=== PATIENT | female | born 1995 | race Caucasian/White ===

== ENCOUNTER 2020-03-07 09:52 | Emergency (ER) | payer MEDICAID, SELFPAY ==
[2020-03-07 09:52] VITALS: BP 137/87; PULSE 79; RESP 18; TEMP 37.1; O2SAT 98; BMI 34.4
--- NOTE | 2020-03-07 10:09 | W.ED.DENTAL ---
HPI - Dental/Oral General: Chief complaint: Dental/Oral Stated complaint: DENTAL PAIN Time Seen by Provider: 03/07/20 10:02 History of Present Illness: HPI Narrative: 25-year-old female patient presents the emergency department complaining of left-sided upper dental pain as well as facial swelling. Patient states the dental pain started a few days ago she woke up with swelling to the left side of her face. Patient denies any difficulty swallowing. Patient denies any shortness of breath. Patient denies any fever. Patient denies any pain in her mastoid area. Patient states she has known dental decay. Associated symptoms: Denies ear or mastoid pain, fever(s) or odynophagia Review of Systems General: Reports: 10 or more systems reviewed and unremarkable except in HPI and below Const: Denies: fever(s) or chills ENMT: Reports: dental pain and sinus pain (Swelling and pain noted to the left side of face); Denies: throat pain, uvular edema, enlarged tonsils, odynophagia, bleeding gums, dry mouth or ear or mastoid pain Neuro: Denies: headache(s) PFSH ED PFSH: Surgical History History of lymph node excision Status post cholecystectomy Status post ear surgery Status post tubal ligation Family History Father Hypertension Other Diabetes Social History Smoking and tobacco status: current every day smoker Alcohol intake: current Alcohol intake frequency: holidays/special occasions only Female Reproductive History: Date of last menstrual period: 06/08/19 Para: 3 Physical Exam Const: COMMON NORMALS: no acute distress, average body habitus, patient oriented x3, no limitations, healthy appearing, alert and well nourished HENMT: COMMON NORMALS: normocephalic, atraumatic, hearing grossly normal bilaterally, external ears normal, EAC's normal, TM's normal bilaterally, Normal external nose present, Normal nasal mucous membranes and turbinates present, moist oral mucous membranes, oropharynx normal, dentition normal and gingiva normal HEAD & SCALP: normocephalic and atraumatic FACE & SINUS: Facial tenderness on exam of face and sinuses on the left NOSE: Normal external nose present and Normal nasal mucous membranes and turbinates present EXTERNAL EAR: Yes external ears normal EXTERNAL AUDITORY CANAL: EAC's normal TYMPANIC MEMBRANE: TM's normal bilaterally MOUTH: Normal oral and palatal mucosa present; no trismus and no restricted motion TEETH & GINGIVA: Yes abnormal tooth and associated gingiva, Yes caries and Yes other (There is no obvious abscess there is no fluctuation induration or pointing noted) TEETH & GINGIVA IMAGES: 1. THROAT: no uvular edema Neck/C-Spine: COMMON NORMALS: no JVD Resp: COMMON NORMALS: normal respiratory effort, No retractions, No use of accessory muscles, clear to auscultation bilaterally and percussion normal AUSCULTATION: clear to auscultation bilaterally PERCUSSION: percussion normal Cardio: COMMON NORMALS: no JVD, regular rate and regular rhythm RATE: regular rate RHYTHM: regular rhythm Neuro: COMMON NORMALS: patient oriented x3 SENSORIUM/ORIENTATION: Yes alert Course Vital Signs: Vital signs: Vital Signs Temperature 98.7 F 03/07/20 09:52 Pulse Rate 79 03/07/20 09:52 Respiratory Rate 18 03/07/20 09:52 Blood Pressure 137/87 03/07/20 09:52 Pulse Oximetry 98 03/07/20 09:52 MDM - Dental/Oral MDM Narrative: Medical decision making narrative: Patient is well-appearing nontoxic and in no acute distress. Patient presents with left sided upper dental pain. With facial swelling and tenderness. Patient does not have any pain over the mastoid area patient has no concerning findings for Angel's angina. Patient is able to swallow without difficulty. Patient denies any trismus. There is no obvious abscess there is no fluctuation pointing noted. Patient does have tenderness to the gumline as well as dental caries noted. I will go ahead and start patient on clindamycin patient is currently taken amoxicillin I advised her to stop taking this and start clindamycin. Patient's physical exam findings are consistent with infected dental caries facial cellulitis. Patient is to follow-up with her dentist next week. I did discuss return precautions with patient as well as home care. Patient denies any chest pain or shortness of breath. Patient is afebrile. Patient has had a tubal ligation so I will go ahead and start her on an NSAID for pain control. Differential Diagnosis: Dental Differential Diagnosis: Likely gingival abscess, dental caries, dental abscess and aphthous ulcer Discharge Plan Discharge Patient Disposition: Home Clinical Impression: Dental caries, Cellulitis of face Condition: Stable Prescriptions: New clindamycin HCl 300 mg capsule 300 mg PO BID 7 Days Qty: 14 RF: 0 ibuprofen 800 mg tablet 800 mg PO TID Qty: 30 RF: 0 No Action No Known Home Medications RF: 0 Referrals: Kristie Gracia DO [Primary Care Provider] - Discharge Diet: Advance as tolerated Discharge Activity: Resume usual activity Patient Instructions: Cellulitis (ED), Toothache (ED) Activity Restrictions/Additional Instructions: Please stop your Amoxicillin and Start Clindamycin Please follow up with your dentist Please take Ibuprofen for pain control Please return with any worsening of condition Coding Level of Care Code ED Network Infrastructure Architect for Iqra Ralph
== END 2020-03-07 10:25 | disposition home or self-care (01) ==
PROVIDERS: Emergency Provider Registered Nurse; PCP Family Medicine
DX: K02.9 Dental caries, unspecified (principal); L03.211 Cellulitis of face; F17.210 Nicotine dependence, cigarettes, uncomplicated
CPT/HCPCS: 12345; 99281

== ENCOUNTER → 2020-05-15 11:15 | Outpatient (BNVA) | payer MEDICAID, SELFPAY | PROVIDERS: PCP Family Medicine; Visit Provider Nurse Practitioner Family | DX: Z20.828 Contact with and (suspected) exposure to other viral communicable diseases (principal); J06.9 Acute upper respiratory infection, unspecified | CPT/HCPCS: 87635 ==

== ENCOUNTER 2020-05-17 12:22 | Emergency (ER) | payer SELFPAY ==
[2020-05-17 12:27] VITALS: BP 125/85; PULSE 87; RESP 18; TEMP 36.8; O2SAT 97; BMI 37.3
--- NOTE | 2020-05-17 12:49 | W.ED.DENTAL ---
HPI - Dental/Oral General: Chief complaint: Dental/Oral Stated complaint: DENTAL PAIN,COUGH Time Seen by Provider: 05/17/20 12:34 Source: patient Mode of arrival: ambulatory Limitations: no limitations History of Present Illness: MD Complaint: tooth pain and tooth injury (same tooth 3 years ago - avulsion) Location: Tooth # (16) Onset (ago): day(s) (2-3) Duration: constant Severity: mild Severity scale (1-10): 3 Relieving factors: NSAIDs Exacerbating factors: chewing, cold and heat Context: history of dental caries and other (dental pain same tooth) Associated symptoms: Reports no associated symptoms; Denies fever(s) Treatment prior to arrival: oral analgesic Review of Systems General: Reports: 10 or more systems reviewed and unremarkable except in HPI and below Const: Denies: fever(s), chills or diaphoresis Eyes: Denies: blurry vision or eye redness ENMT: Reports: dental pain; Denies: throat pain, uvular edema, hoarseness, disequilibrium, nasal discharge, nasal congestion or post nasal drip Card: Denies: chest pain, palpitations, irregular heart rhythm, dyspnea on exertion or orthopnea Resp: Reports: non-productive cough; Denies: dyspnea, productive cough, wheezing or chest congestion (x) GI: Denies: abdominal pain, nausea or vomiting : Denies: difficulty voiding or dysuria Musc: Denies: back pain Skin/Breast: Denies: rash or pruritus Neuro: Denies: headache(s), weakness in extremities or behavioral changes Psych: Denies: anxiety or depression Manjit/Lymph: Denies: easy bruising PFSH ED PFSH: Surgical History History of lymph node excision Status post cholecystectomy Status post ear surgery Status post tubal ligation Family History Father Hypertension Other Diabetes Social History Smoking and tobacco status: current every day smoker Alcohol intake: current Alcohol intake frequency: holidays/special occasions only Female Reproductive History: Date of last menstrual period: 06/08/19 Para: 3 Physical Exam Const: COMMON NORMALS: no acute distress, patient oriented x3, healthy appearing and alert GENERAL APPEARANCE: cooperative, comfortable and well hydrated HENMT: COMMON NORMALS: normocephalic, atraumatic, EAC's normal, Normal external nose present and moist oral mucous membranes HEAD & SCALP: normal to inspection, normocephalic and atraumatic FACE & SINUS: normal facial exam, sinuses nontender and face symmetric NOSE: Normal external nose present EXTERNAL AUDITORY CANAL: EAC's normal MOUTH: Normal oral and palatal mucosa present TEETH & GINGIVA IMAGES: 1. dental avulsion with tenderness noted, + caries, + gumline edema THROAT: tonsils normal, uvula midline and postnasal drainage; uvula not laterally displaced and no uvular edema Eye: COMMON NORMALS: Equal, round and reactive pupils present and EOMs intact bilaterally GENERAL EYE: appearance normal, both eyes and all related structures PUPIL: Yes Equal, round and reactive pupils present Neck/C-Spine: COMMON NORMALS: full ROM and no lymphadenopathy GENERAL: Yes normal visual inspection and Yes trachea midline CERVICAL SPINE: Yes cervical ROM normal, No pain with cervical ROM, No Cervical spine tenderness and No Paracervical muscle tenderness Lymph: LYMPHATIC: no lymphadenopathy noted Chest: COMMONS NORMALS: normal inspection of the chest and normal palpation of entire chest wall Resp: COMMON NORMALS: normal respiratory effort, No retractions, No use of accessory muscles and clear to auscultation bilaterally EFFORT & INSPECTION: Yes able to speak in complete sentences and No decreased respiratory effort AUSCULTATION: clear to auscultation bilaterally Cardio: COMMON NORMALS: regular rhythm, S1 normal heart sound present, S2 normal heart sound present and Peripheral pulses 2+ throughout RHYTHM: regular rhythm HEART SOUNDS: S1 normal heart sound present and S2 normal heart sound present PERIPHERAL PULSES: Peripheral pulses 2+ throughout GI: COMMON NORMALS: Normal to inspection, nondistended, normoactive bowel sounds present, Soft to palpation and non-tender INSPECTION: Yes normal to inspection PALPATION: Yes Soft to palpation : COMMON NORMALS: Yes no CVA tenderness BLADDER/KIDNEY EXAM: Yes no CVA tenderness Back/Pelvis: COMMON NORMALS: no CVA tenderness, thoracic and lumbar spine normal to inspection and no thoracic nor lumbar tenderness Extremity: COMMON NORMALS: normal to inspection and capillary refill normal Neuro: COMMON NORMALS: patient oriented x3 and no focal motor deficits SENSORIUM/ORIENTATION: Yes alert Psych: COMMON NORMALS: mental status grossly normal, Normal thought process present and cooperative ACTIVITY/MOTOR BEHAVIOR: Yes appropriate eye contact THOUGHT PROCESS: Normal thought process present Skin: COMMON NORMALS: no rashes or lesions noted and turgor normal GENERAL SKIN EXAM: no rashes or lesions noted and turgor normal Course Vital Signs: Vital signs: Vital Signs Temperature 98.3 F 05/17/20 13:21 Pulse Rate 74 05/17/20 13:21 Respiratory Rate 16 05/17/20 13:21 Blood Pressure 125/81 05/17/20 13:21 Pulse Oximetry 94 05/17/20 13:21 Discharge Plan Discharge Patient Disposition: Home Clinical Impression: Toothache, Dental caries Condition: Stable Prescriptions: New clindamycin HCl 300 mg capsule 300 mg PO QID 7 Days Qty: 28 RF: 0 Lidocaine Viscous 2 % solution 1.2 ml topical Q3H PRN (Reason: pain) Qty: 15 RF: 0 No Action ibuprofen 800 mg tablet 800 mg PO TID Qty: 30 RF: 0 Discharge Orders: Discharge ED (Routine); Ordered 05/17/20 Ordered By: Aurea Goff Referrals: Kristie Gracia DO [Primary Care Provider] - Discharge Diet: GI Soft Discharge Activity: Resume usual activity Patient Instructions: Dental Abscess (ED), Dental Caries (ED), Toothache (ED) Activity Restrictions/Additional Instructions: Warm salt water swish and spit every 2-3 hours as needed for pain Avoid chewing on the affected side Apply dental wax as this may help protect the root against sensitivity Soft foods, avoid hard crunchy foods Follow-up with your dentist this week without fail Continue antibiotics until all gone, even if feeling better Return to the emergency department if you develop difficulty breathing, swelling underneath your tongue or underneath the chin Take antibiotics with food Coding Level of Care Code ED Telegraph Service Rater for Chg Fwd Exam Comprehensive
[2020-05-17 12:54] VITALS: BP 125/81; PULSE 74; RESP 16; TEMP 36.7; O2SAT 95
[2020-05-17 13:21] VITALS: BP 125/81; PULSE 74; RESP 16; TEMP 36.8; O2SAT 94
== END 2020-05-17 13:21 | disposition home or self-care (01) ==
PROVIDERS: Emergency Provider Nurse Practitioner Family; PCP Family Medicine
DX: K02.9 Dental caries, unspecified (principal); F17.210 Nicotine dependence, cigarettes, uncomplicated
CPT/HCPCS: 12345; 99281; 99282

== ENCOUNTER 2020-08-08 09:29 | Emergency (ER) | payer SELFPAY ==
[2020-08-08 09:35] VITALS: BP 136/94; PULSE 83; RESP 16; TEMP 36.7; O2SAT 94; BMI 33.9
--- NOTE | 2020-08-08 10:14 | W.ED.DENTAL ---
HPI - Dental/Oral General: Chief complaint: Dental/Oral Stated complaint: SEVERE MOUTH PAIN Time Seen by Provider: 08/08/20 09:35 Source: patient Mode of arrival: ambulatory Limitations: no limitations History of Present Illness: HPI Narrative: 25-year-old female patient presents to the emergency department with 1 month history of left upper jaw pain. She reports pain has been on and off but more pronounced past several days. States took her brothers leftover clindamycin last week but ran out. She also reports taking ibuprofen 800 mg 3 times daily without improvement of pain. She reports pain with chewing, states pain is due to left upper wisdom tooth problem. Similar symptoms in the past, has attempted to get into a dental provider but has been unsuccessful. She denies difficulty swallowing, swelling under the chin or fever/chills. MD Complaint: tooth pain Location: Tooth # Teeth map: 1. Onset (ago): month(s) (1) Duration: constant Severity: moderate Relieving factors: NSAIDs and other Exacerbating factors: chewing, cold and heat Context: history of dental caries and poor dental care Associated symptoms: Reports gum swelling; Denies ear or mastoid pain, fever(s), odynophagia or tongue swelling Treatment prior to arrival: topical analgesic Review of Systems General: Reports: 10 or more systems reviewed and unremarkable except in HPI and below Const: Denies: fever(s), chills or diaphoresis Eyes: Denies: blurry vision or eye redness ENMT: Reports: dental pain; Denies: throat pain, odynophagia, halitosis or ear or mastoid pain Card: Denies: chest pain, palpitations or irregular heart rhythm Resp: Denies: dyspnea, productive cough, non-productive cough or wheezing GI: Denies: abdominal pain, nausea or vomiting : Denies: difficulty voiding or dysuria Musc: Denies: neck pain, back pain, joint pain, joint warmth or joint stiffness Skin/Breast: Denies: rash or pruritus Neuro: Denies: headache(s), weakness in extremities or behavioral changes Psych: Denies: anxiety, depression or change in appetite Manjit/Lymph: Denies: easy bruising All/Imm: Denies: tongue swelling PFS ED PFSH: Surgical History History of lymph node excision Status post cholecystectomy Status post ear surgery Status post tubal ligation Family History Father Hypertension Other Diabetes Social History Smoking and tobacco status: current every day smoker Alcohol intake: current Alcohol intake frequency: holidays/special occasions only Female Reproductive History: Date of last menstrual period: 08/07/20 Para: 3 Physical Exam Const: COMMON NORMALS: no acute distress, patient oriented x3, healthy appearing and alert GENERAL APPEARANCE: cooperative, comfortable and well hydrated HENMT: COMMON NORMALS: normocephalic, atraumatic, EAC's normal, TM's normal bilaterally, Normal external nose present and moist oral mucous membranes HEAD & SCALP: normal to inspection, normocephalic and atraumatic FACE & SINUS: normal facial exam and face symmetric NOSE: Normal external nose present and Normal nares present EXTERNAL AUDITORY CANAL: EAC's normal TYMPANIC MEMBRANE: TM's normal bilaterally MOUTH: Normal oral and palatal mucosa present, lip normal, tongue normal and Normal salivary glands and ducts present; no drooling, lip not abnormal and no muffled voice TEETH & GINGIVA IMAGES: 1. dental avulsion # 15, gumline edema with erythema present, dental tenderness to # 16 THROAT: posterior oropharynx normal, tonsils normal and uvula midline Eye: COMMON NORMALS: Equal, round and reactive pupils present and EOMs intact bilaterally GENERAL EYE: appearance normal, both eyes and all related structures PUPIL: Yes Equal, round and reactive pupils present Neck/C-Spine: COMMON NORMALS: full ROM, no lymphadenopathy and supple GENERAL: Yes normal visual inspection and Yes trachea midline CERVICAL SPINE: Yes cervical ROM normal Lymph: LYMPHATIC: no lymphadenopathy noted Chest: COMMONS NORMALS: normal inspection of the chest Resp: COMMON NORMALS: normal respiratory effort, No retractions, No use of accessory muscles and clear to auscultation bilaterally EFFORT & INSPECTION: Yes able to speak in complete sentences, No pursed lip breathing, No labored and No audible wheezes AUSCULTATION: clear to auscultation bilaterally and lung sounds not diminished Cardio: COMMON NORMALS: regular rate, regular rhythm, S1 normal heart sound present, S2 normal heart sound present and Peripheral pulses 2+ throughout RATE: regular rate RHYTHM: regular rhythm HEART SOUNDS: S1 normal heart sound present and S2 normal heart sound present PERIPHERAL PULSES: Peripheral pulses 2+ throughout GI: COMMON NORMALS: Normal to inspection, nondistended, normoactive bowel sounds present, Soft to palpation and non-tender INSPECTION: Yes normal to inspection PALPATION: Yes Soft to palpation : COMMON NORMALS: Yes no CVA tenderness BLADDER/KIDNEY EXAM: Yes no CVA tenderness Back/Pelvis: COMMON NORMALS: no CVA tenderness and thoracic and lumbar spine normal to inspection Extremity: COMMON NORMALS: normal to inspection and capillary refill normal Neuro: COMMON NORMALS: patient oriented x3 and no focal motor deficits SENSORIUM/ORIENTATION: Yes alert Psych: COMMON NORMALS: mental status grossly normal, Normal thought process present and cooperative ACTIVITY/MOTOR BEHAVIOR: Yes appropriate eye contact THOUGHT PROCESS: Normal thought process present Skin: COMMON NORMALS: no rashes or lesions noted and turgor normal GENERAL SKIN EXAM: no rashes or lesions noted and turgor normal Procedures Nerve Block Nerve Block 1: Time out performed: Yes Local Anesthetic: lidocaine 1% and with epi Amount of anesthesia used (mL): 5 Side: left Intraoral Nerve Block: superior alveolar Procedure Successful: Yes Patient Tolerated Procedure: well Complications: none Course Vital Signs: Vital signs: Vital Signs Temperature 98.0 F 08/08/20 09:35 Pulse Rate 83 08/08/20 09:35 Respiratory Rate 16 08/08/20 09:35 Blood Pressure 136/94 08/08/20 09:35 Pulse Oximetry 94 08/08/20 09:35 Discharge Plan Discharge Patient Disposition: Home Clinical Impression: Toothache, Dental abscess Condition: Stable Prescriptions: New amoxicillin 500 mg capsule 500 mg PO TID 10 Days Qty: 30 RF: 0 chlorhexidine gluconate 0.12 % mouthwash 15 ml buccal BID Qty: 118 RF: 0 Tylenol Extra Strength 500 mg tablet 1,000 mg PO TID PRN (Reason: pain) Qty: 30 RF: 0 No Action ibuprofen 800 mg tablet 800 mg PO TID Qty: 30 RF: 0 Lidocaine Viscous 2 % solution 1.2 ml topical Q3H PRN (Reason: pain) Qty: 15 RF: 0 Discharge Orders: Discharge ED (Routine); Ordered 08/08/20 Ordered By: Aurea Goff Discharge Diet: GI Soft Discharge Activity: Limit activity as instructed Patient Instructions: Dental Abscess (ED), Dental Caries (ED), Toothache (ED), Opioid Safety Activity Restrictions/Additional Instructions: Return to the emergency department if you develop difficulty breathing, swelling under your tongue or inability to swallow Take amoxicillin until gone, even if better Warm salt water swish and spit every 1-2 hours as needed for pain Continue chlorhexidine, mouthwash twice daily for 7 days A list of dental providers have been provided to you, please call and schedule an appointment as return of dental pain or continued dental pain can occur, follow-up will be needed May apply dental wax to the affected area to help with sensitivity Avoid shaving on the affected side, dental block has been completed so avoid chewing hard foods or chewing on the affected side as accidental tongue trauma/cheek trauma can occur Stand Alone Forms: Work/School Release Coding Level of Care Code ED Administrative Personal Assistant for Iqra Ralph
[2020-08-08 10:33] VITALS: BP 134/87; PULSE 83; RESP 18; O2SAT 94
== END 2020-08-08 10:33 | disposition home or self-care (01) ==
PROVIDERS: Emergency Provider Nurse Practitioner Family
DX: K04.7 Periapical abscess without sinus (principal); F17.210 Nicotine dependence, cigarettes, uncomplicated
CPT/HCPCS: 99282

== ENCOUNTER 2020-08-09 11:54 | Emergency (ER) | payer SELFPAY ==
[2020-08-09 11:57] VITALS: BP 138/79; PULSE 116; RESP 18; TEMP 37.1; O2SAT 99; BMI 33.9
[2020-08-09 12:13] VITALS: BP 138/105; PULSE 96; RESP 16; O2SAT 94
--- NOTE | 2020-08-09 12:59 | ED_ITS ---
HPI - Dental/Oral General: Chief complaint: Dental/Oral Stated complaint: HERE YESTERDAY, MOUTH PAIN WORSENING Time Seen by Provider: 08/09/20 12:11 History of Present Illness: HPI Narrative: 25-year-old female patient presents to the emergency department for reevaluation of dental pain. She was evaluated in the emergency room yesterday, received dental injection/block, prescribed amoxicillin and chlorhexidine. She reports swelling to the upper cheek on the left side. She denies fever chills, difficulty swallowing or breathing MD Complaint: tooth pain Teeth map: 1. Onset (ago): day(s) Duration: constant Relieving factors: NSAIDs Exacerbating factors: chewing, cold and heat Context: history of dental caries Associated symptoms: Reports gum swelling; Denies fever(s) Treatment prior to arrival: topical analgesic and oral analgesic Review of Systems General: Reports: 10 or more systems reviewed and unremarkable except in HPI and below Const: Denies: fever(s), chills, body aches, fatigue, malaise or diaphoresis Eyes: Denies: blurry vision or eye redness ENMT: Reports: dental pain; Denies: throat pain, dry mouth, halitosis, disequilibrium, nasal discharge or nasal congestion Card: Denies: chest pain, palpitations or irregular heart rhythm Resp: Denies: dyspnea, productive cough, non-productive cough or wheezing GI: Denies: abdominal pain, nausea or vomiting : Denies: difficulty voiding or dysuria Musc: Denies: neck pain or back pain Skin/Breast: Denies: rash or pruritus Neuro: Denies: headache(s), weakness in extremities or behavioral changes Psych: Denies: anxiety, depression or change in appetite Manjit/Lymph: Denies: easy bruising PFSH ED PFSH: Surgical History History of lymph node excision Status post cholecystectomy Status post ear surgery Status post tubal ligation Family History Father Hypertension Other Diabetes Social History Smoking and tobacco status: current every day smoker Alcohol intake: current Alcohol intake frequency: holidays/special occasions only Female Reproductive History: Date of last menstrual period: 08/06/20 Para: 3 Physical Exam Const: COMMON NORMALS: no acute distress, patient oriented x3, healthy appearing and alert GENERAL APPEARANCE: cooperative, comfortable and well hydrated HENMT: COMMON NORMALS: normocephalic, atraumatic, EAC's normal, TM's normal bi laterally, Normal external nose present and moist oral mucous membranes HEAD & SCALP: normal to inspection, normocephalic and atraumatic FACE & SINUS: normal facial exam, face symmetric, sinus tenderness maxillary (Left) and edema (Cheek) on the left; no ecchymosis and no erythema NOSE: Normal external nose present, Normal nares present and No nasal polyps present EXTERNAL AUDITORY CANAL: EAC's normal TYMPANIC MEMBRANE: TM's normal bilaterally MOUTH: Normal oral and palatal mucosa present, lip normal and tongue normal TEETH & GINGIVA: Yes gingiva abnormal (Left upper gum/gingiva above #16 and 15. Soft fluency noted) hypertrophic and edematous THROAT: posterior oropharynx normal, tonsils normal, uvula midline and other (No symptoms/sign of Angel's angina) Eye: COMMON NORMALS: Equal, round and reactive pupils present and EOMs intact bilaterally GENERAL EYE: appearance normal, both eyes and all related structures PUPIL: Yes Equal, round and reactive pupils present Neck/C-Spine: COMMON NORMALS: full ROM and no lymphadenopathy GENERAL: Yes normal visual inspection and Yes trachea midline CERVICAL SPINE: Yes cervical ROM normal Lymph: LYMPHATIC: no lymphadenopathy noted Chest: COMMONS NORMALS: normal inspection of the chest Resp: COMMON NORMALS: normal respiratory effort and clear to auscultation bilaterally AUSCULTATION: clear to auscultation bilaterally Cardio: COMMON NORMALS: regular rate, regular rhythm, S1 normal heart sound present and S2 normal heart sound present RATE: regular rate RHYTHM: regular rhythm HEART SOUNDS: S1 normal heart sound present and S2 normal heart sound present GI: COMMON NORMALS: Soft to palpation and non-tender INSPECTION: Yes normal to inspection PALPATION: Yes Soft to palpation : COMMON NORMALS: Yes no CVA tenderness BLADDER/KIDNEY EXAM: Yes no CVA tenderness Back/Pelvis: COMMON NORMALS: no CVA tenderness and thoracic and lumbar spine normal to inspection Extremity: COMMON NORMALS: normal to inspection and capillary refill normal Neuro: COMMON NORMALS: patient oriented x3 and no focal motor deficits SENSORIUM/ORIENTATION: Yes alert Psych: COMMON NORMALS: mental status grossly normal, Normal thought process present and cooperative ACTIVITY/MOTOR BEHAVIOR: Yes appropriate eye contact THOUGHT PROCESS: Normal thought process present Skin: COMMON NORMALS: no rashes or lesions noted and turgor normal GENERAL SKIN EXAM: no rashes or lesions noted and turgor normal Procedures Abscess I/D Site: other (Oral, upper gingiva) Side (if applicable): left Local Anesthetic: lidocaine 1% and with epi (Lanced with #11 blade, able to express malodorous exudate) Amount of anesthesia used (mL): 3 Irrigation: No Packing used?: none Course Vital Signs: Vital signs: Vital Signs Temperature 98.7 F 08/09/20 11:57 Pulse Rate 96 08/09/20 12:13 Respiratory Rate 16 08/09/20 12:13 Blood Pressure 138/105 08/09/20 12:13 Pulse Oximetry 94 08/09/20 12:13 MDM - Dental/Oral MDM Narrative: Medical decision making narrative: 25-year-old female patient presents to the emergency department with continued left upper gumline swelling and pain. New onset of facial swelling left side today. Area of abscess was opened, purulent drainage/ malodorous, appreciated. We will keep patient on amoxicillin as abscess draining, advised to follow-up with dentistry without fail and to continue amoxicillin until gone. She was encouraged to continue warm salt water swish and spit every 1-2 hours as this will help with drainage. Discharge Plan Discharge Patient Disposition: Home Clinical Impression: Toothache, Dental abscess Condition: Stable Prescriptions: No Action Lidocaine Viscous 2 % solution 1.2 ml topical Q3H PRN (Reason: pain) Qty: 15 RF: 0 acetaminophen [Tylenol Extra Strength] 500 mg tablet 1,000 mg PO TID PRN (Reason: pain) Qty: 30 RF: 0 amoxicillin 500 mg capsule 500 mg PO TID@,,20 RF: 0 ibuprofen 800 mg tablet 800 mg PO TID@,,20 RF: 0 chlorhexidine gluconate 0.12 % mouthwash 15 ml buccal BID@0800,1999 RF: 0 Discharge Orders: Discharge ED (Routine); Ordered 08/09/20 Ordered By: Aurea Goff Discharge Diet: GI Soft Discharge Activity: Resume usual activity Patient Instructions: Dental Abscess (ED), Toothache (ED), Opioid Safety Activity Restrictions/Additional Instructions: Continue ibuprofen and Tylenol as needed for pain Continue chlorhexidine and amoxicillin as prescribed, do not stop amoxicillin if improvement. Continue until all gone Follow-up with your dentist this week without fail, list of dental providers have been provided to you Continue with warm salt water swish and spit every 1-2 hours as this will help facilitate drainage and decrease abscess. Return to the emergency department if you develop fever chills difficulty swallowing or swelling under the chin, Coding Level of Care Code ED Bowling Alley Attendant for Chg Fwd Exam Comprehensive
[2020-08-09] MEDS: HYDROcodone-acetaminophen 5-325 mg Tablet 1 TAB PO (14:05)
--- NOTE | 2020-08-10 14:12 | DCPLANNER ---
desktop manager had message to schedule a follow up appointment for patient with Dr. Potter. desktop manager spoke with patient, and asked patient if she would like for case managers to schedule a follow up appointment for patient with Dr. Potter. Patient stated not at this time, that patient has an appointment scheduled for later in August at the clinic in [facility].
== END 2020-08-09 14:31 | disposition home or self-care (01) ==
PROVIDERS: Emergency Provider Nurse Practitioner Family
DX: K04.7 Periapical abscess without sinus (principal); F17.210 Nicotine dependence, cigarettes, uncomplicated
CPT/HCPCS: 41800; 99282

== ENCOUNTER 2020-08-31 17:47 | Emergency (ER) | payer SELFPAY ==
[2020-08-31 18:10] VITALS: BP 143/86; PULSE 75; RESP 14; TEMP 37; O2SAT 100; BMI 33.5
--- NOTE | 2020-08-31 18:19 | XRR_ITS ---
PROCEDURE INFORMATION: Exam: XR Chest Exam date and time: 08/31/2020 6:22 PM Age: 25 years old Clinical indication: Chest pain; Patient HX: High BP, chest pressure x 5 days, weakness TECHNIQUE: Imaging protocol: XR of the chest Views: 1 view. COMPARISON: CR Chest 1 [place] [id number] 07/07/2017 2:02 PM FINDINGS: Lungs: Unremarkable. No consolidation. Pleural spaces: Unremarkable. No pleural effusion. No pneumothorax. Heart/Mediastinum: Unremarkable. No cardiomegaly. Bones/joints: Unremarkable. XR/XR chest 1V portable [id number] IMPRESSION: No acute findings.
--- NOTE | 2020-08-31 18:20 | ECG_ITS ---
[facility] Test Date: 2020-08-31 Pat Name: Sharee Villa Department: Room: Gender: Female Supervisory Training Specialist: alicia : 1995 Requested By: Faheem Hill Order Number: [id number] Nina MD: Cecelia Benedict M.D. Measurements Intervals [place] Rate: 65 P: 33 CO: 143 QRS: 53 QRSD: 99 T: 28 QT: 381 QTc: 397 Interpretive Statements SINUS RHYTHM WITH SINUS ARRHYTHMIA Compared to ECG 07/07/2017 15:25:28 T-wave abnormality no longer present Electronically Signed On 09-01-2020 20:14:17 CDT by Cecelia Benedict M.D. [id number]
--- NOTE | 2020-08-31 18:41 | W.ED.WEAKNES ---
HPI - Weakness General: Chief complaint: Weakness Stated complaint: high bp, general unwellness Time Seen by Provider: 08/31/20 18:20 Source: patient Mode of arrival: ambulatory Limitations: no limitations History of Present Illness: HPI Narrative: 25-year-old female over the last 5 to 6 days states she is feeling unwell and just generally weakness. She states that it seems to happen after she eats. She states that she has had no appetite and has been eating much less. She denies any pain. She denies any fever or cough. She states she just feels generally unwell and very tired. Associated symptoms: Denies chest pain, dysuria, easy bruising, headache(s), nausea or vomiting Review of Systems Const: Reports: fatigue Eyes: Denies: blurry vision or eye discomfort ENMT: Denies: throat pain or dental pain Card: Denies: chest pain Resp: Denies: dyspnea GI: Denies: abdominal pain, nausea, vomiting or diarrhea : Denies: dysuria Musc: Denies: neck pain or back pain Skin/Breast: Denies: rash Neuro: Denies: headache(s) Psych: Denies: depression Manjit/Lymph: Denies: easy bruising All/Imm: Denies: urticaria PFSH ED PFSH: Surgical History History of lymph node excision Status post cholecystectomy Status post ear surgery Status post tubal ligation Family History Father Hypertension Other Diabetes Social History Smoking and tobacco status: current every day smoker Alcohol intake: current Alcohol intake frequency: holidays/special occasions only Female Reproductive History: Date of last menstrual period: 08/06/20 Para: 3 Physical Exam Const: COMMON NORMALS: no acute distress, patient oriented x3 and healthy appearing HENMT: COMMON NORMALS: normocephalic and atraumatic HEAD & SCALP: normocephalic and atraumatic Eye: COMMON NORMALS: Equal, round and reactive pupils present and EOMs intact bilaterally PUPIL: Yes Equal, round and reactive pupils present Neck/C-Spine: COMMON NORMALS: full ROM and supple Chest: COMMONS NORMALS: normal inspection of the chest and normal palpation of entire chest wall Resp: COMMON NORMALS: normal respiratory effort, No retractions, No use of accessory muscles and clear to auscultation bilaterally AUSCULTATION: clear to auscultation bilaterally Cardio: COMMON NORMALS: regular rate, regular rhythm and No murmurs present (Cardio) RATE: regular rate RHYTHM: regular rhythm GI: COMMON NORMALS: Normal to inspection, nondistended, normoactive bowel sounds present, Soft to palpation, non-tender and no masses PALPATION: Yes Soft to palpation Extremity: COMMON NORMALS: normal to inspection and full ROM Neuro: COMMON NORMALS: patient oriented x3, moves all extremities and no focal motor deficits Psych: COMMON NORMALS: mental status grossly normal, Normal thought process present and cooperative THOUGHT PROCESS: Normal thought process present Skin: COMMON NORMALS: no rashes or lesions noted and no wounds GENERAL SKIN EXAM: no rashes or lesions noted Course Vital Signs: Vital signs: Vital Signs Temperature 98.6 F 08/31/20 18:10 Pulse Rate 74 08/31/20 20:43 Respiratory Rate 17 08/31/20 20:43 Blood Pressure 126/82 08/31/20 20:43 Pulse Oximetry 100 08/31/20 20:43 MDM - Weakness MDM Narrative: Medical decision making narrative: Patient presents here with generalized weakness. Patient is well-appearing here and has normal vital signs. Her blood work and her thyroid hormones are all normal here. She has no signs of acute infection. She is stable for discharge and is to follow-up with PCP and return if worsening. Lab Data: Labs: Lab Results 08/31/20 08/31/20 08/31/20 Range/Units 18:59 18:59 18:59 WBC (4.0-10.0) 10^3/ uL RBC (4.1-5.3) 10^6/u L Hgb (11.5-15.3) g/dL Hct (37.0-47.0) % MCV (81-99) fL MCH (28.0-34.0) pg MCHC (30.0-36.0) g/dL RDW (12.1-15.1) % Plt Count (130-400) 10^3/c mm MPV (7.4-10.4) fL Neut % (Auto) % Lymph % (Auto) % Cotton % (Auto) % Eos % (Auto) % Baso % (Auto) % Neut # (Auto) (1.8-7.7) 10^3/u L Lymph # (Auto) (0.8-4.8) 10^3/u L Cotton # (Auto) (0.2-0.9) 10^3/u L Eos # (Auto) (0.0-0.8) 10^3/u L Baso # (Auto) (0.0-0.1) 10^3/u L Nucleated RBC % (a uto) % Nucleated RBCs # /100WBC Sodium Potassium Chloride Carbon Dioxide Anion Gap BUN Creatinine GFR Calculation Glucose Calculated Osmolal ity Calcium Total Bilirubin AST ALT Alkaline Phosphata se Total Protein Albumin Globulin TSH HCG, Qual Negative (Negative) Urine Color Yellow (Yellow) Urine Appearance Sl hazy (CLEAR) Urine pH 5 (5-7) Ur Specific Gravit y 1.020 (1.005-1.030) Urine Protein Neg (Negative) Urine Glucose (UA) Norm (Normal) Urine Ketones Negative (Negative) Urine Blood 3+ H (Negative) Urine Nitrate Negative (Negative) Urine Bilirubin 1+ H (Negative) Urine Urobilinogen 1 H (Negative) mg/dL Ur Leukocyte Cynthia ase Negative (Negative) Urine RBC 5-10 H (0-2) /hpf Urine WBC 10-15 H (0-5) /hpf Ur Squamous Epith Cells 25-40 H (0-5) /hpf Amorphous Sediment 1+ /hpf Urine Bacteria 1+ H (NONE) /hpf Urine Mucus 1+ /hpf SARS-CoV-2 Ag (Rap id) Negative (Negative) 08/31/20 08/31/20 08/31/20 Range/Units 19:13 19:13 19:45 WBC 7.2 (4.0-10.0) 10^3/ uL RBC 4.22 (4.1-5.3) 10^6/u L Hgb 13.7 (11.5-15.3) g/dL Hct 40.8 (37.0-47.0) % MCV 96.7 (81-99) fL MCH 32.5 (28.0-34.0) pg MCHC 33.6 (30.0-36.0) g/dL RDW 14.2 (12.1-15.1) % Plt Count 214 (130-400) 10^3/c mm MPV 12.2 H (7.4-10.4) fL Neut % (Auto) 50.5 % Lymph % (Auto) 37.9 % Cotton % (Auto) 9.5 % Eos % (Auto) 1.0 % Baso % (Auto) 0.8 % Neut # (Auto) 3.61 (1.8-7.7) 10^3/u L Lymph # (Auto) 2.7 (0.8-4.8) 10^3/u L Cotton # (Auto) 0.7 (0.2-0.9) 10^3/u L Eos # (Auto) 0.1 (0.0-0.8) 10^3/u L Baso # (Auto) 0.1 (0.0-0.1) 10^3/u L Nucleated RBC % (a uto) 0 % Nucleated RBCs # 0.0 /100WBC Sodium Cancelled 138 Potassium Cancelled 3.5 Chloride Cancelled 105 Carbon Dioxide Cancelled 25 Anion Gap Cancelled 11.5 BUN Cancelled 14 Creatinine Cancelled 0.7 GFR Calculation Cancelled 100.4 Glucose Cancelled 88 Calculated Osmolal ity Cancelled 286 Calcium Cancelled 8.5 Total Bilirubin Cancelled 0.4 AST Cancelled 13 ALT Cancelled 15 Alkaline Phosphata se Cancelled 70 Total Protein Cancelled 6.6 Albumin Cancelled 3.9 Globulin Cancelled 2.7 TSH Cancelled 1.09 HCG, Qual (Negative) Urine Color (Yellow) Urine Appearance (CLEAR) Urine pH (5-7) Ur Specific Gravit y (1.005-1.030) Urine Protein (Negative) Urine Glucose (UA) (Normal) Urine Ketones (Negative) Urine Blood (Negative) Urine Nitrate (Negative) Urine Bilirubin (Negative) Urine Urobilinogen (Negative) mg/dL Ur Leukocyte Cynthia ase (Negative) Urine RBC (0-2) /hpf Urine WBC (0-5) /hpf Ur Squamous Epith Cells (0-5) /hpf Amorphous Sediment /hpf Urine Bacteria (NONE) /hpf Urine Mucus /hpf SARS-CoV-2 Ag (Rap id) (Negative) Imaging Data^: CXR: My impression: no acute abnormality EKG Data^: EKG 1: Attestation: I personally reviewed and interpreted this EKG as follows: EKG interpretation date: 08/31/20 EKG interpretation time: 19:42 Interpretation: nsr hr [address] or t wave abnormalities qrs 99 qtc 392 Discharge Plan Discharge Patient Disposition: Home Clinical Impression: Weakness Condition: Stable Prescriptions: No Action amoxicillin 500 mg capsule 500 mg PO TID@08,12,20 RF: 0 chlorhexidine gluconate 0.12 % mouthwash 15 ml buccal BID@0800,1999 RF: 0 Stress Be Gone 1 tab PO DAILY PRN (Reason: STRESS) RF: 0 Discharge Orders: Discharge ED (Routine); Ordered 08/31/20 Ordered By: Faheem Hill Discharge Diet: Advance as tolerated Discharge Activity: Resume usual activity Patient Instructions: Weakness (ED) Coding Level of Care Code ED Help Desk Assistant for Chg Fwd Exam Comprehensive
[2020-08-31 19:14] VITALS: BP 134/70; PULSE 74; RESP 19; O2SAT 99
[2020-08-31] MEDS: sodium chloride 0.9% 1,000 ML 999 ML IV (19:17)
[2020-08-31 19:30] LABS: HCG Qualitative Urine. Negative (Negative)
[2020-08-31 19:31] LABS: Basophils # 0.1 10^3/uL (0.0-0.1); Basophils % 0.8 %; Eosinophils # 0.1 10^3/uL (0.0-0.8); Hematocrit 40.8 % (37.0-47.0); Hemoglobin 13.7 g/dL (11.5-15.3); Lymphocytes # 2.7 10^3/uL (0.8-4.8); Lymphocytes % 37.9 %; Mean Corpuscular HGB Conc 33.6 g/dL (30.0-36.0); Mean Corpuscular Hemoglobin 32.5 pg (28.0-34.0); Mean Corpuscular Volume 96.7 fL (81-99); Mean Platelet Volume 12.2 fL (7.4-10.4); Monocytes # 0.7 10^3/uL (0.2-0.9); Monocytes % 9.5 %; Neutrophils # 3.61 10^3/uL (1.8-7.7); Neutrophils % 50.5 %; Nucleated Red Blood Cells % 0 %; Platelet Count 214 10^3/cmm (130-400); Red Blood Count 4.22 10^6/uL (4.1-5.3); Red Cell Distribution Width 14.2 % (12.1-15.1); White Blood Count 7.2 10^3/uL (4.0-10.0)
[2020-08-31 19:37] LABS: Add Urine Microscopic? YES; Bilirubin Urine 1+ (Negative); Blood Urine 3+ (Negative); Glucose Urine UA Norm (Normal); Ketones Urine Negative (Negative); Leukocyte Esterase Urine Negative (Negative); Nitrate Urine Negative (Negative); Protein Urine Neg (Negative); Urine Appearance SL Hazy (CLEAR); Urine Color Yellow (Yellow); Urobilinogen Urine 1 mg/dL (Negative); pH Urine 5 (5-7)
[2020-08-31 19:38] LABS: Amorphous Sediment Urine 1+ /hpf; Bacteria Urine 1+ /hpf; Mucus Urine 1+ /hpf; Squamous Epithelial Cell Urine 25-40 /hpf (0-5)
[2020-08-31 19:52] LABS: SARS Covid-2 Antigen Negative (Negative)
[2020-08-31 20:26] LABS: Alanine Aminotransferase 15 U/L (0-33); Albumin Level 3.9 g/dL (3.5-5.2); Alkaline Phosphatase 70 IU/L (35-105); Anion Gap 11.5 (5-19); Aspartate Amino Transferase 13 U/L (0-32); Blood Urea Nitrogen 14 mg/dL (6-20); Calcium 8.5 mg/dL (8.5-10.5); Carbon Dioxide 25 mmol/L (22-29); Chloride 105 mmol/L (98-107); Globulin 2.7 g/dL (1.3-4.6); Glomerular Filtration Rate 100.4 mL/min (90-130); Glucose 88 mg/dL (65-115); Osmolality Calculated 286 mOsm/kg (285-295); Potassium 3.5 mmol/L (3.5-5.1); Sodium 138 mmol/L (136-145); Thyroid Stimulating Hormone 1.09 uIU/mL (0.27-4.20); Total Bilirubin 0.4 mg/dL (0.15-1.2); Total Protein 6.6 g/dL (6.6-8.7)
[2020-08-31 20:43] VITALS: BP 126/82; PULSE 74; RESP 17; O2SAT 100
== END 2020-08-31 20:52 | disposition home or self-care (01) ==
PROVIDERS: Emergency Provider Emergency Medicine
DX: R53.1 Weakness (principal); F17.210 Nicotine dependence, cigarettes, uncomplicated
CPT/HCPCS: 36415; 71045; 80053; 81001; 81025; 84443; 85025; 87426; 93005; 96360; 96361; 99284; J7030

== ENCOUNTER 2021-07-20 17:31 | Inpatient (IN) | payer MEDICAID, SELFPAY ==
[2021-07-20 17:47] VITALS: BP 144/86; PULSE 87; RESP 17; O2SAT 97; BMI 33.7
--- NOTE | 2021-07-20 17:55 | ED.C_ITS ---
HPI - Psych General: Chief Complaint: Psychiatric Symptoms Stated Complaint: SI Time Seen by Provider: 07/20/21 17:41 Source: patient Mode of arrival: ambulatory Limitations: no limitations History of Present Illness: Patient is a 26-year-old female who presents to ED today with a complaint of suicidal ideations. Patient states she has struggled with depression for a long time but states over the past several months she has been struggling with thoughts of suicide. She states her was recently placed in penitentiary (I did not inquire as to the reasoning) but states she is now raising their 3 kids alone and feels overwhelmed and hopeless. Patient has no specific plan to harm herself. She does states she self harms by cutting and also cut a cross on her chest the other day stating I do not know why I did that . She states she has been drinking alcohol more than she knows is healthy. No drug use. Patient denies homicidal ideations or hallucinations. She states she has been to [facility] previously back in 2016. Patient states she recently began citalopram approximately 4 days ago. MD complaint: suicidal ideation Onset (ago): week(s) Duration: constant History of same: Yes Context: significant life stressor Associated psychiatric symptoms: depression and suicidal ideation Associated symptoms: Reports depression and suicidal ideation; Deny auditory hallucinations, visual hallucinations or homicidal ideation Treatments prior to arrival: none If self harm: admits thoughts of self harm Review of Systems Const: Denies: fever(s) or chills Card: Denies: chest pain, palpitations, lightheadedness or syncope Resp: Denies: dyspnea GI: Denies: abdominal pain, nausea, vomiting or diarrhea Skin/Breast: Denies: rash Neuro: Denies: headache(s) Psych: Reports: depression, hopelessness and suicidal ideation; Denies: visual hallucinations, auditory hallucinations or homicidal ideation [facility] ED PFSH: Surgical History History of lymph node excision Status post cholecystectomy Status post ear surgery Status post tubal ligation Family History Father Hypertension Other Diabetes Social History Smoking and tobacco status: current every day smoker Alcohol intake: current Alcohol intake frequency: holidays/special occasions on ly Female Reproductive History: Date of last menstrual period: 08/06/20 Para: 3 Physical Exam Const: COMMON NORMALS: no acute distress, patient oriented x3, alert and well nourished GENERAL APPEARANCE: cooperative and well kempt Resp: COMMON NORMALS: normal respiratory effort and clear to auscultation bilaterally AUSCULTATION: clear to auscultation bilaterally Cardio: COMMON NORMALS: regular rate and regular rhythm RATE: regular rate RHYTHM: regular rhythm Neuro: COMMON NORMALS: patient oriented x3 SENSORIUM/ORIENTATION: Yes alert Psych: COMMON NORMALS: mental status grossly normal, Normal thought process present, cooperative, normal affect, speech normal and activity/motor behavior normal APPEARANCE: Yes grossly normal and Yes well kempt ATTITUDE: Yes calm ACTIVITY/MOTOR BEHAVIOR: Yes appropriate eye contact and No psychomotor agitation SPEECH: Yes normal speech MOOD & AFFECT: Yes euthymic mood THOUGHT PROCESS: Normal thought process present THOUGHT CONTENT: Yes Normal thought content present ATTENTION/CONCENTRATION: Yes attention grossly intact and Yes concentration grossly intact MEMORY/COGNITION: Yes memory grossly intact and Yes cognition grossly intact INSIGHT: Good insight present (Psych) JUDGEMENT: Good judgement present (Psych) Skin: NARRATIVE SKIN EXAM: very minor abrasions to volar forearm Course Consultations: Consultation #1: Dr. Doherty-accepts to NPU Vital Signs: Vital signs: Vital Signs Pulse Rate 87 07/20/21 17:47 Respiratory Rate 17 07/20/21 17:47 Blood Pressure 144/86 07/20/21 17:47 Pulse Oximetry 97 07/20/21 17:47 MDM - Psych Medical Decision Making Patient is voluntary with affidavit and being admitted to NPU to Dr. Doherty Lab Data : 07/20/21 18:25 07/20/21 18:25 Laboratory Results WBC 5.8 10^3/uL (4.0-10.0) 07/20/21 18:25 RBC 3.72 10^6/uL (4.1-5.3) L 07/20/21 18:25 Hgb 12.4 g/dL (11.5-15.3) 07/20/21 18:25 Hct 37.4 % (37.0-47.0) 07/20/21 18:25 MCV 100.5 fl (81-99) H 07/20/21 18:25 MCH 33.3 pg (28.0-34.0) 07/20/21 18: MCHC 33.2 g/dL (30.0-36.0) 07/20/21 18: RDW 12.8 % (12.1-15.1) 07/20/21 18: Plt Count 210 10^3/cmm (130-400) 07/20/21 18: MPV 11.1 fL (7.4-10.4) H 07/20/21 18: Neut % (Auto) 52.7 % 07/20/21 18: Lymph % (Auto) 37.7 % 07/20/21 18: Chambers % (Auto) 8.4 % 07/20/21 18: Eos % (Auto) 0.5 % 07/20/21 18: Baso % (Auto) 0.5 % 07/20/21: Neut # (Auto) 3.07 10^3/uL (1.8-7.7) 07/20/21: Lymph # (Auto) 2.2 10^3/uL (0.8-4.8) 07/20/21 18: Chambers # (Auto) 0.5 10^3/uL (0.2-0.9) 07/20/21: Eos # (Auto) 0.0 10^3/uL (0.0-0.8) 07/20/21: Baso # (Auto) 0.0 10^3/uL (0.0-0.1) 07/20/21: Nucleated RBC % (auto) 0 % 07/20/21: Nucleated RBCs # 0.0 /100WBC 07/20/21 18: Sodium 137 mmol/L (136-145) 07/20/21 18: Potassium 3.7 mmol/L (3.5-5.1) 07/20/21 18: Chloride 104 mmol/L (98-107) 07/20/21 18: Carbon Dioxide 20 mmol/L (22-29) L 07/20/21 18:25 Anion Gap 16.7 (5-19) 07/20/21 18:25 BUN 9 mg/dL (6-20) 07/20/21 18:25 Creatinine 0.6 mg/dL (0.5-0.9) 07/20/21 18:25 GFR Calculation 119.0 mL/min (90-130) 07/20/21 18:25 Glucose 94 mg/dL (65-115) 07/20/21 18:25 Calculated Osmolality 282 mOsm/kg (285-295) L 07/20/21 18:25 Calcium 9.9 mg/dL (8.5-10.5) 07/20/21 18:25 Total Bilirubin 0.2 mg/dL (0.15-1.2) 07/20/21 18:25 AST 18 U/L (0-32) 07/20/21 18:25 ALT 14 U/L (0-33) 07/20/21 18:25 Alkaline Phosphatase 58 IU/L (35-105) 07/20/21 18:25 Total Protein 7.3 g/dL (6.6-8.7) 07/20/21 18:25 Albumin 4.6 g/dL (3.5-5.2) 07/20/21 18:25 Globulin 2.7 g/dL (1.3-4.6) 07/20/21 18:25 HCG, Qual Negative (Negative) 07/20/21 18:25 Salicylates < 0.3 mg/dL (3-10) L 07/20/21 18:25 Urine Opiates Screen Negative ng/mL (Negative) 07/20/21 18:05 Acetaminophen < 5.0 ug/mL (10-30) L 07/20/21 18:25 Ur Barbiturates Screen Negative ng/mL (Negative) 07/20/21 18:05 Ur Phencyclidine Scrn Negative ng/mL (Negative) 07/20/21 18:05 Ur Amphetamines Screen Negative ng/mL (Negative) 07/20/21 18:05 U Benzodiazepines Scrn Negative ng/mL (Negative) 07/20/21 18:05 Urine Cocaine Screen Negative ng/mL (Negative) 07/20/21 18:05 U Marijuana (THC) Screen Negative ng/mL (Negative) 07/20/21 18:05 Ethyl Alcohol < 10 mg/dL (0-10) 07/20/21 18:25 Discharge Plan Discharge Patient Disposition: Admitted As Inpatient Clinical Impression: Suicidal ideation, Self-harming behavior, Alcohol abuse Condition: Stable Prescriptions: No Action amoxicillin 500 mg capsule 500 mg PO TID@08,12,20 0RF chlorhexidine gluconate 0.12 % mouthwash 15 ml buccal BID@799,1999 0RF Rx Instructions: rinse and spit BID x 5 days Stress Be Gone 1 tab PO DAILY PRN (Reason: STRESS) 0RF Coding Level of Care Code ED Senior Cyber Intelligence Analyst for Chg Fwd Exam Expanded Problem Focused
[2021-07-20 18:31] LABS: Amphetamines Screen Urine Negative (Negative); Barbiturates Screen Urine Negative (Negative); Benzodiazepines Screen Urine Negative (Negative); Opiate Screen Urine Negative (Negative)
[2021-07-20 18:43] LABS: Basophils % 0.5 %; Eosinophils % 0.5 %; Hematocrit 37.4 % (37.0-47.0); Hemoglobin 12.4 g/dL (11.5-15.3); Lymphocytes # 2.2 10^3/uL (0.8-4.8); Lymphocytes % 37.7 %; Mean Corpuscular HGB Conc 33.2 g/dL (30.0-36.0); Mean Corpuscular Hemoglobin 33.3 pg (28.0-34.0); Mean Corpuscular Volume 100.5 fl (81-99); Mean Platelet Volume 11.1 fL (7.4-10.4); Monocytes # 0.5 10^3/uL (0.2-0.9); Monocytes % 8.4 %; Neutrophils # 3.07 10^3/uL (1.8-7.7); Neutrophils % 52.7 %; Nucleated Red Blood Cells % 0 %; Platelet Count 210 10^3/cmm (130-400); Red Blood Count 3.72 10^6/uL (4.1-5.3); Red Cell Distribution Width 12.8 % (12.1-15.1); White Blood Count 5.8 10^3/uL (4.0-10.0)
[2021-07-20 18:54] LABS: HCG, Serum Qual Negative (Negative)
[2021-07-20 19:31] LABS: Alanine Aminotransferase 14 U/L (0-33); Albumin Level 4.6 g/dL (3.5-5.2); Alkaline Phosphatase 58 IU/L (35-105); Aspartate Amino Transferase 18 U/L (0-32); Blood Urea Nitrogen 9 mg/dL (6-20); Calcium 9.9 mg/dL (8.5-10.5); Carbon Dioxide 20 mmol/L (22-29); Chloride 104 mmol/L (98-107); Globulin 2.7 g/dL (1.3-4.6); Glucose 94 mg/dL (65-115); Osmolality Calculated 282 mOsm/kg (285-295); Sodium 137 mmol/L (136-145); Total Bilirubin 0.2 mg/dL (0.15-1.2); Total Protein 7.3 g/dL (6.6-8.7)
[2021-07-20 19:34] LABS: Acetaminophen < 5.0 ug/mL (10-30); Alcohol Level < 10 mg/dL (0-10); Salicylate < 0.3 mg/dL (3-10)
[2021-07-20 19:46] LABS: Anion Gap 16.7 (5-19); Potassium 3.7 mmol/L (3.5-5.1)
[2021-07-20 19:58] LABS: Cocaine Screen Urine Negative (Negative); PCP Screen Urine Negative (Negative); THC Screen Urine Negative (Negative)
--- NOTE | 2021-07-20 20:40 | PC.NURSE ---
Report called to NANCY Santiago.
[2021-07-20 20:45] VITALS: BP 158/92; PULSE 94; RESP 17
[2021-07-20 20:56] VITALS: RESP 18; TEMP 36.3; O2SAT 98
[2021-07-20 21:21] VITALS: BP 138/90; PULSE 78; RESP 18; O2SAT 99
[2021-07-20 22:00] VITALS: BP 138/90; PULSE 78; RESP 18; TEMP 36.3
[2021-07-21 05:45] VITALS: BP 126/86; PULSE 72; RESP 17; TEMP 36.8; O2SAT 98
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
[2021-07-21] MEDS: folic acid 1 mg Tablet PO (08:35)
[2021-07-21] MEDS: thiamine 100 mg Tablet PO (08:35)
[2021-07-21] MEDS: multivitamin therapeutic Tablet 1 TAB PO (08:35)
[2021-07-21] MEDS: nicotine 2 mg Gum BUCCAL (09:16)
[2021-07-21 10:45] LABS: Add Urine Microscopic? YES; Bilirubin Urine Neg (Negative); Blood Urine 2+ (Negative); Glucose Urine UA Norm (Normal); Ketones Urine Negative (Negative); Leukocyte Esterase Urine 2+ (Negative); Nitrate Urine Negative (Negative); Protein Urine Neg (Negative); Specific Gravity, Urine 1.025 (1.005-1.030); Urine Appearance Cloudy (CLEAR); Urine Color Yellow (Yellow); Urobilinogen Urine Norm (Negative); pH Urine 5 (5-7)
[2021-07-21 10:46] LABS: Add Urine Culture? No; Bacteria Urine 1+ /hpf; Squamous Epithelial Cell Urine 15-25 /hpf (0-5); WBC Urine 55-80 /hpf (0-5)
[2021-07-21] MEDS: buPROPion XL (24 HR) 150 mg Tablet PO (12:14)
--- NOTE | 2021-07-21 12:53 | NPU.GN ---
[facility] Topic:Coping Skills General Mood of Group: Sharee did attend and participate in group today. Sharee was aided in completing the new patient packet for services at [facility]. Clients hygiene was good and she seemed stable at this time.
[2021-07-21 13:49] VITALS: BP 125/76; PULSE 69; RESP 24; TEMP 36.8; O2SAT 99
[2021-07-21] MEDS: sulfamethoxazole-trimeth DS 160-800 mg Tablet 1 TAB PO (18:03)
[2021-07-21 20:18] VITALS: BP 115/52; PULSE 97; RESP 16; TEMP 36.7; O2SAT 97
[2021-07-21] MEDS: trazodone 50 mg Tablet PO (21:46)
--- NOTE | 2021-07-22 03:28 | PC.NURSE ---
Patient c/o trouble sleeping. Given PRN trazodone as ordered with noted effectiveness.
[2021-07-22 06:00] VITALS: BP 101/65; PULSE 77; RESP 16; O2SAT 97
--- NOTE | 2021-07-22 08:26 | P.NPUPN_ITS ---
Subjective NPU Subjective: Interval history: She feels like she is doing a lot better. She has had a lot of time to think that has been helpful. She says that she always has a lot of anxiety. She always has sweaty palms. She always has difficulty sleeping. She says that is because she is thinking too much. That has been worse lately. She always has difficulty going to the store. She only buys groceries once per month. She is very self-conscious. Her mother has anxiety. She also had trauma as a child and feels that it could have contributed to her anxiety. Medications make her s leepy and Dr. Doherty decided to discontinue the Celexa and try Wellbutrin. She even thinks that the Wellbutrin makes her sleepy in the morning. She understands that it could be her imagination. She agreed to increase of the Wellbutrin to 300 mg tomorrow. We can change that to bedtime if she feels like it makes her sleepy. She also agreed to add some Lexapro 10 mg at bedtime. She was educated somewhat on anxiety and that an SSRI was needed for chronic anxiety. Mental Status Exam MSE Comments: This is an obese, white female, in hospital scrubs, with adequate grooming and eye contact. With tattoos on her exposed skin. No abnormal movements, except for mild psychomotor retardation. Cooperative with exam in mild distress. Speech was decreased rate and volume. Mood described as much better; affect slightly subdued. Thought process, organized. Thought content: patient denied any suicidal or homicidal ideation, there were no delusions reported or noted, patient denied any auditory or visual hallucinations. Attention, concentration, and memory appear intact but none were formally tested. She is alert and oriented times three. Insight and judgment appear fair. Impulse control is limited. Cognition: Patient Appearance: Appropriate Level of Consciousness: Awake, Alert, Appropriate and Follows Commands Patient Cognition Impaired: No Ability to Follow Directions: Excellent Patient Orientation (long list): Person, Place, Time, Name, Age, Birthday and Day of Month Comprehension Ability: No Impairment Hallucination Type: None Delusion Description: Not Present Thought Process: Appropriate Affect: Affect Description: Appropriate Behavior: Patient Behavior: Appropriate Speech Pattern: Appropriate and Clear Vitals/I&O/Wt Last Vital Signs Temp 98.1 F 07/21/21 20:18 Pulse 77 07/22/21 06:00 Resp 16 07/22/21 06:00 BP 101/65 07/22/21 06:00 Pulse Ox 97 07/22/21 06:00 Weight last 48 hrs Weight 94.801 kg Data NPU : 07/20/21 18:25 07/20/21 18:25 A&P Assessment and plan (1) Suicidal ideation: Status: Acute (2) Self-harming behavior: Status: Acute (3) Alcohol abuse: Status: Acute (4) Major depressive disorder, recurrent: Status: Acute (5) Partner relational problem: Status: Acute (6) Adjustment disorder with mixed disturbance of emotions and conduct: Status: Acute Plan This is a 26-year-old, white female, with a long history of depression and partner-relational problems, who presents adjusting to the loss of the father of her three children, who went to residential, and the ramifications of that on their lives, who is open to medication adjustments and connection to resources. 1. Continue current medication, except: Increase Wellbutrin XL to 300 mg tomorrow morning. Add Lexapro 10 mg at bedtime 2. Encourage individual, group, and milieu therapy. 3. Continue q-15 minute checks for safety. 4. Place on CIWA protocol. 5. Recommend sober living treatment at the highest level of care to which the patient is willing to commit. Involuntary Hold Information 96 Hour Hold: 96 Hour Involuntary Admission: No Attestations NPU Medical Necessity Statement*: Inpatient hospitalization is medically necessary and the clinically appropriate intervention at this time. We will initiate medications and make changes as indicated. Coding Level of Care Code Acute Refrigeration Brazer/Solderer for Iqra Ralph Diagnoses Suicidal ideation R45.851 Self-harming behavior Alcohol abuse F10.10 Major depressive disorder, recurrent F33.9 Partner relational problem Z63.0 Adjustment disorder with mixed disturbance of emotions and conduct F43.25
[2021-07-22] MEDS: sulfamethoxazole-trimeth DS 160-800 mg Tablet 1 TAB PO ×2 (10:20→18:21)
[2021-07-22] MEDS: multivitamin therapeutic Tablet 1 TAB PO (10:22)
[2021-07-22] MEDS: folic acid 1 mg Tablet PO (10:22)
[2021-07-22] MEDS: thiamine 100 mg Tablet PO (10:22)
[2021-07-22] MEDS: buPROPion XL (24 HR) 150 mg Tablet PO (10:23)
[2021-07-22] MEDS: OLANZapine 5 mg ODT PO (12:10)
--- NOTE | 2021-07-22 12:49 | NPU.GN ---
[facility] Topic:Symptoms/ Judgment Boat Activity General Mood of Group: Sharee did attend and participate in group today. Hygiene was ok , she did well in group today. She enjoyed the group activity and would like to do one similar with her children at home. She seems to be mentally stable at this time.
[2021-07-22 14:00] VITALS: BP 130/78; PULSE 78; RESP 18; TEMP 36.7; O2SAT 97
[2021-07-22] MEDS: escitalopram 10 mg Tablet PO (21:19)
[2021-07-22 22:00] VITALS: BP 123/78; PULSE 80; RESP 15; TEMP 36.5; O2SAT 99
[2021-07-23 06:00] VITALS: BP 94/63; PULSE 66; RESP 16; O2SAT 98
[2021-07-23] MEDS: multivitamin therapeutic Tablet 1 TAB PO (09:57)
[2021-07-23] MEDS: sulfamethoxazole-trimeth DS 160-800 mg Tablet 1 TAB PO ×2 (09:58→19:09)
[2021-07-23] MEDS: folic acid 1 mg Tablet PO (09:58)
[2021-07-23] MEDS: thiamine 100 mg Tablet PO (09:58)
[2021-07-23] MEDS: buPROPion XL (24 HR) 150 mg Tablet 300 MG PO (09:58)
[2021-07-23 13:01] VITALS: BP 129/68; PULSE 76; RESP 20; TEMP 37; O2SAT 95
[2021-07-23] MEDS: OLANZapine 5 mg ODT PO (13:25)
[2021-07-23] MEDS: hyDROXYzine 25 mg Capsule 50 MG PO (13:25)
--- NOTE | 2021-07-23 13:36 | W.PM.NPUPNS ---
Subjective NPU Subjective: Interval history: She says that she feels much better today. She has had more energy and has not felt like she needed to lay down. She actually did not realize that she had more energy until she started talking about it. She thinks that she will have the energy to do more things with her children. She was also encouraged to exercise in order to increase her energy. She has been up at the nurses window and talked about how much she liked [employer] coffee. She has not had any side effects from the Lexapro last night. She agreed to gradually increase that to 20 mg after discharge. Mental Status Exam MSE Comments: This is a 26-year old overweight female who appears her stated age and is in no acute distress. She is well groomed and in hospital scrubs. psychomotor activity is normal. Speech is at a regular rate and rhythm, normal volume, good articulation, not pressured. Alert, oriented X3 Attention and concentration good. Memory is intact Mood is good. Affect is euthymic. Thought process is logical and goal-directed. Thought content: Denies auditory and visual hallucinations. No delusions or paranoia are noted. No current suicidal ideation, and no homicidal ideation. Fund of knowledge is average. Insight and judgment appear to be improved. Impulse control is improved. Cognition: Patient Appearance: Appropriate Level of Consciousness: Awake, Alert, Appropriate and Follows Commands Patient Cognition Impaired: No Ability to Follow Directions: Excellent Patient Orientation (long list): Person, Place, Time, Name, Age, Birthday and Day of Month Comprehension Ability: No Impairment Hallucination Type: None Delusion Description: Not Present Thought Process: Appropriate Affect: Affect Description: Appropriate Behavior: Patient Behavior: Appropriate and Cooperative Speech Pattern: Appropriate Vitals/I&O/Wt Last Vital Signs Temp 98.6 F 07/23/21 13:01 Pulse 76 07/23/21 13:01 Resp 20 H 07/23/21 13:01 BP 129/68 07/23/21 13:01 Pulse Ox 95 07/23/21 13:01 Data NPU : 07/20/21 18:25 07/20/21 18:25 A&P Assessment and plan (1) Suicidal ideation: Status: Acute (2) Self-harming behavior: Status: Acute (3) Alcohol abuse: Status: Acute (4) Major depressive disorder, recurrent: Status: Acute (5) Partner relational problem: Status: Acute (6) Adjustment disorder with mixed disturbance of emotions and conduct: Status: Acute Plan This is a 26-year-old, white female, with a long history of depression and partner-relational problems, who presents adjusting to the loss of the father of her three children, who went to jail, and the ramifications of that on their lives, who is open to medication adjustments and connection to resources. 1.Continue current medication, except: Continue Wellbutrin XL to 300 mg and Lexapro 10 mg at bedtime 2.Encourage individual, group, and milieu therapy. 3.Continue q-15 minute checks for safety. 4.Place on CIWA protocol. 5.Recommend sober living treatment at the highest level of care to which the patient is willing to commit. Involuntary Hold Information 96 Hour Hold: 96 Hour Involuntary Admission: No Attestations NPU Medical Necessity Statement*: Inpatient hospitalization is medically necessary and the clinically appropriate intervention at this time. We will initiate medications and make changes as indicated. Coding Level of Care Code Acute Director Of Sales Support for Iqra Ralph Diagnoses Suicidal ideation R45.851 Self-harming behavior Alcohol abuse F10.10 Major depressive disorder, recurrent F33.9 Partner relational problem Z63.0 Adjustment disorder with mixed disturbance of emotions and conduct F43.25
[2021-07-23 14:00] VITALS: BP 129/68; PULSE 76; RESP 20; TEMP 37; O2SAT 98
[2021-07-23 19:54] VITALS: BP 106/66; PULSE 72; RESP 15; TEMP 37.1; O2SAT 99
[2021-07-23] MEDS: escitalopram 10 mg Tablet PO (21:20)
[2021-07-24 06:00] VITALS: BP 117/68; PULSE 77; RESP 16; TEMP 36.6; O2SAT 97
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
[2021-07-24 08:51] VITALS: BP 117/68; PULSE 77; RESP 16; TEMP 36.6; O2SAT 97
[2021-07-24] MEDS: sulfamethoxazole-trimeth DS 160-800 mg Tablet 1 TAB PO (09:12)
[2021-07-24] MEDS: thiamine 100 mg Tablet PO (09:12)
[2021-07-24] MEDS: buPROPion XL (24 HR) 150 mg Tablet 300 MG PO (09:12)
[2021-07-24] MEDS: multivitamin therapeutic Tablet 1 TAB PO (09:12)
[2021-07-24] MEDS: folic acid 1 mg Tablet PO (09:12)
[2021-07-25 14:23] LABS: HSV 1 DNA NOT DETECTED; HSV 2 DNA NOT DETECTED; HSV Source PLASMA
== END 2021-07-24 10:18 | disposition home or self-care (01) | DRG 885 ==
LOC: ER 20:03 → NP 07-21 05:51
PROVIDERS: Admitting Provider Psychiatry & Neurology Psychiatry; Emergency Provider Physician Assistant; Visit Provider Psychiatry & Neurology Psychiatry
DX: F33.9 Major depressive disorder, recurrent, unspecified (principal); R45.851 Suicidal ideations; F43.25 Adjustment disorder with mixed disturbance of emotions and conduct; Z63.0 Problems in relationship with spouse or partner; F41.9 Anxiety disorder, unspecified; F10.10 Alcohol abuse, uncomplicated; F17.210 Nicotine dependence, cigarettes, uncomplicated; E66.9 Obesity, unspecified; Z62.811 Personal history of psychological abuse in childhood; Z62.810 Personal history of physical and sexual abuse in childhood; Z91.52 Personal history of nonsuicidal self-harm; Z81.8 Family history of other mental and behavioral disorders; Z81.4 Family history of other substance abuse and dependence; Z68.33 Body mass index [BMI] 33.0-33.9, adult
CPT/HCPCS: 80053; 80306; 80307; 81001; 84703; 85025; 87530; 97150; 97165

== ENCOUNTER → 2022-12-01 11:37 | Outpatient (BNVA) | payer MEDICAID, SELFPAY | DX: Z20.2 Contact with and (suspected) exposure to infections with a predominantly sexual mode of transmission (principal) | CPT/HCPCS: 86592; 86705; 86706; 86709; 86803; 87340; 87491; 87591; 87661; 87806 ==

== ENCOUNTER → 2023-01-30 14:36 | Outpatient (BNVA) | payer MEDICAID, SELFPAY | PROVIDERS: Visit Provider Nurse Practitioner Family | DX: G43.909 Migraine, unspecified, not intractable, without status migrainosus (principal); Z20.2 Contact with and (suspected) exposure to infections with a predominantly sexual mode of transmission | CPT/HCPCS: 87491; 87591; 87661 ==

== ENCOUNTER → 2023-04-14 14:07 | Outpatient (BNVA) | payer MEDICAID, SELFPAY | PROVIDERS: Visit Provider Emergency Medicine | DX: S49.92XA Unspecified injury of left shoulder and upper arm, initial encounter (principal); M19.012 Primary osteoarthritis, left shoulder; X58.XXXA Exposure to other specified factors, initial encounter | CPT/HCPCS: 73030 ==

== ENCOUNTER → 2024-03-13 15:35 | Outpatient (BNVA) | payer MEDICAID, SELFPAY | PROVIDERS: PCP Nurse Practitioner; Visit Provider Nurse Practitioner | DX: N91.2 Amenorrhea, unspecified (principal) | CPT/HCPCS: 81025; 84702 ==

== ENCOUNTER 2024-03-29 14:08 | Outpatient (CLI) | payer MEDICAID, SELFPAY ==
--- NOTE | 2024-03-29 14:30 | US_ITS ---
WS: [id number] US transvaginal [id number] HISTORY: N91.2 - Amenorrhea, unspecified COMPARISON: None available. Uterus: 8.7 cm x 5.5 cm x 4.1 cm. Normal size anteverted uterus. No fibroid or mass. Endometrium: 0.8 cm. Normal. Normal myometrial junctional zone. Right ovary: Prior RIGHT oophorectomy. No RIGHT adnexal mass. Left ovary: 3.5 cm x 3.3 cm x 2.1 cm. Normal size and vascularity, no cystic or solid masses. Small f ollicles in the ovary. Crenulated thick-walled mass measures 1.3 x 1.5 x 1.2 cm consistent with a col lapsing corpus luteal cyst. No free fluid in the cul-de-sac. US/US transvaginal [id number] IMPRESSION: 1. Status post RIGHT oophorectomy. No RIGHT adnexal mass. 2. Normal endometrium. 3. LEFT ovarian involuting corpus luteal cyst. 4. No fibroid.
== END 2024-03-29 14:09 | disposition home or self-care (01) ==
LOC: RAD 14:10
PROVIDERS: PCP Nurse Practitioner; Visit Provider Nurse Practitioner
DX: N83.12 Corpus luteum cyst of left ovary (principal); N91.2 Amenorrhea, unspecified; N92.6 Irregular menstruation, unspecified; Z90.721 Acquired absence of ovaries, unilateral
CPT/HCPCS: 76830; 81025; 84702

== ENCOUNTER → 2024-06-07 10:04 | Outpatient (BNVA) | payer MEDICAID, SELFPAY | PROVIDERS: PCP Nurse Practitioner; Visit Provider Psychiatry & Neurology Psychiatry | DX: Z79.899 Other long term (current) drug therapy | CPT/HCPCS: 80053; 80061; 83036; 84443; 85025 ==

== ENCOUNTER → 2024-12-03 16:09 | Outpatient (BNVA) | payer MEDICAID, SELFPAY | PROVIDERS: PCP Nurse Practitioner; Visit Provider Nurse Practitioner | DX: R63.4 Abnormal weight loss (principal) | CPT/HCPCS: 84443; 85025 ==